=== PATIENT | female | born 1960 | race Caucasian/White ===

== ENCOUNTER → 2020-09-28 | Outpatient (CLI) | payer BC ==
[~2020-09-28] MED LIST: ADVAIR 250-501 EACH INH; ADVAIR HFA 230/1 INH INH; ASPIRIN EC81 MG PO; ASPIRIN325 MG PO; ATORVASTATIN CA20 MG PO; CYCLOBENZAPRINE5 MG PO; HYDROCODON-ACE1 EAC2 PO; IBU800 MG PO; IPRAT-ALBUT 0.5-3 ML INH; LIORESAL TAB 1010 MG PO; LISINOPRIL5 MG PO; LOPRESSOR100 MG PO; LOPRESSOR50 MG PO; NORVASC2.5 MG PO; NORVASC5 MG PO; OMEPRAZOLE20 M1 PO; PERCOCET 7.5-31 EACH PO; PREDNISONE20 MG PO; PRILOSEC OTC20 MG PO; PROVENTIL HFA6.7 GM INH; PROZAC20 MG PO; VENTOLIN HFA 66.7 GM INH; ZOFRAN4 MG PO
[2020-09-28 11:21] LABS: HEMOGLOBIN 14.2 gm/dl (12.3-15.3); RED BLOOD COUNT 4.69 M/UL (4.00-5.10); WHITE BLOOD COUNT 4.7 K/UL (4.5-11.0)
== END ==
LOC: EDSTATUS 10:30 → OPSV2 10:30
PROVIDERS: Orthopaedic Surgery
DX: Z01.818 Encounter for other preprocedural examination (principal); M17.12 Unilateral primary osteoarthritis, left knee; Z91.041 Radiographic dye allergy status
CPT/HCPCS: 36415; 71046; 80048; 81001; 85025; 87081; 93005

== ENCOUNTER → 2020-10-11 | Outpatient (CLI) | payer BC | LOC: LAB 04:19 | PROVIDERS: Orthopaedic Surgery | DX: Z01.812 Encounter for preprocedural laboratory examination (principal) | CPT/HCPCS: 80048; 86850; 86900; 86901 ==

== ENCOUNTER → 2020-11-15 | Outpatient (CLI) | payer BC | LOC: KOH-I 15:30 | DX: S42.292A Other displaced fracture of upper end of left humerus, initial encounter for closed fracture (principal); S42.142A Displaced fracture of glenoid cavity of scapula, left shoulder, initial encounter for closed fracture; W19.XXXA Unspecified fall, initial encounter | CPT/HCPCS: 73200 ==

== ENCOUNTER → 2020-11-18 | Outpatient (CLI) | payer BC ==
[2020-11-18 10:28] LABS: HEMOGLOBIN 13.3 gm/dl (12.3-15.3); RED BLOOD COUNT 4.42 M/UL (4.00-5.10); WHITE BLOOD COUNT 8.4 K/UL (4.5-11.0)
== END ==
LOC: OPSV2 08:30 → EDSTATUS 08:30 → OPSV2 09:04
PROVIDERS: Orthopaedic Surgery
DX: Z01.812 Encounter for preprocedural laboratory examination (principal); S42.202A Unspecified fracture of upper end of left humerus, initial encounter for closed fracture
CPT/HCPCS: 36415; 80048; 81001; 85025

== ENCOUNTER → 2020-11-20 | Outpatient (CLI) | payer BC | LOC: LAB 13:15 | PROVIDERS: Orthopaedic Surgery | DX: Z01.812 Encounter for preprocedural laboratory examination (principal) | CPT/HCPCS: 36415; 80048; 86850; 86900; 86901 ==

== ENCOUNTER 2020-11-21 08:43 | Day surgery (SDC) | payer BC ==
[~2020-11-21] VITALS: Ht 167.6 cm; Wt 126.1 kg
[2020-11-21] MEDS ORDERED: HYDROCODON-ACE1 EAC2 PO (10:05)
[2020-11-21] MEDS ORDERED: PERCOCET 7.5-31 EACH PO (15:05)
[2020-11-22 03:16] LABS: HEMOGLOBIN 12.4 gm/dl (12.3-15.3); RED BLOOD COUNT 4.15 M/UL (4.00-5.10); WHITE BLOOD COUNT 15.5 K/UL (4.5-11.0)
--- NOTE | 2020-11-22 04:19 | NUR ---
11/21/20 1900 LEFT SHOULDER ARM SLING ABDUCTION PILLOW IN PLACE.
--- NOTE | 2020-11-22 13:44 | NUR ---
STACIE OLIVEIRA APRN MADE AWARE AT THIS TIME OF XRAY RESULTS ON PATIENT. NO NEW ORDERS NOTED. STILL AWAITING HOME HEALTH SET UP AT THIS TIME.
== END 2020-11-22 16:38 | disposition home or self-care (01) ==
LOC: OR 08:43 → M/S 16:22 → OR 11-22 16:38
PROVIDERS: Orthopaedic Surgery
DX: S42.352A Displaced comminuted fracture of shaft of humerus, left arm, initial encounter for closed fracture (principal); I10 Essential (primary) hypertension; J45.909 Unspecified asthma, uncomplicated; K21.9 Gastro-esophageal reflux disease without esophagitis; F17.219 Nicotine dependence, cigarettes, with unspecified nicotine-induced disorders; E87.1 Hypo-osmolality and hyponatremia; E78.5 Hyperlipidemia, unspecified; K44.9 Diaphragmatic hernia without obstruction or gangrene; G47.30 Sleep apnea, unspecified; M19.90 Unspecified osteoarthritis, unspecified site; E66.9 Obesity, unspecified; Z83.3 Family history of diabetes mellitus; Z83.6 Family history of other diseases of the respiratory system; Z88.8 Allergy status to other drugs, medicaments and biological substances; Z79.899 Other long term (current) drug therapy; X58.XXXA Exposure to other specified factors, initial encounter
CPT/HCPCS: 36415; 73020; 73090; 80048; 85025; 94640; 94664; 94760; 97161; 97166; 97535; C1713; C1776; J0690; J1100; J1170; J2001; J2370; J2405; J2704; J2710; J2795; J3010; J3370; J7120

== ENCOUNTER → 2020-11-23 | Outpatient (CLI) | payer BC | LOC: OPSV 11:49 | DX: Z48.01 Encounter for change or removal of surgical wound dressing (principal) | CPT/HCPCS: G0463 ==

== ENCOUNTER → 2021-03-06 | Outpatient (CLI) | payer BC ==
[~2021-03-06] MED LIST changes: +BACLOFEN10 MG PO; +CYCLOBENZAPRINE10 MG PO; +HYDROCODONE-AC1 EAC1 PO
[2021-03-06 10:08] LABS: HEMOGLOBIN 14.4 gm/dl (12.3-15.3); RED BLOOD COUNT 5.15 M/UL (4.00-5.10); WHITE BLOOD COUNT 8.3 K/UL (4.5-11.0)
== END ==
LOC: OPSV2 09:00 → EDSTATUS 03-09 09:00
PROVIDERS: Orthopaedic Surgery
DX: Z01.818 Encounter for other preprocedural examination (principal); S43.005A Unspecified dislocation of left shoulder joint, initial encounter
CPT/HCPCS: 36415; 71046; 80048; 81001; 85027; 93005

== ENCOUNTER 2021-03-08 09:21 | Day surgery (SDC) | payer BC ==
[~2021-03-08] VITALS: Ht 167.6 cm; Wt 129.3 kg
[2021-03-08] MEDS ORDERED: HYDROCODON-ACE1 EAC2 PO (16:39)
[2021-03-09 06:54] LABS: WHITE BLOOD COUNT 7.3 K/UL (4.5-11.0)
[2021-03-09 06:58] LABS: HEMOGLOBIN 10.3 gm/dl (12.3-15.3); RED BLOOD COUNT 3.88 M/UL (4.00-5.10)
== END 2021-03-09 13:56 | disposition home or self-care (01) ==
LOC: OR 09:21 → M/S 18:20 → OR 03-09 13:56
PROVIDERS: Orthopaedic Surgery
DX: T84.028A Dislocation of other internal joint prosthesis, initial encounter (principal); I10 Essential (primary) hypertension; J44.9 Chronic obstructive pulmonary disease, unspecified; K21.9 Gastro-esophageal reflux disease without esophagitis; F17.210 Nicotine dependence, cigarettes, uncomplicated; E66.9 Obesity, unspecified; E78.5 Hyperlipidemia, unspecified; G47.30 Sleep apnea, unspecified; Z99.89 Dependence on other enabling machines and devices; Z68.41 Body mass index [BMI] 40.0-44.9, adult; Z91.041 Radiographic dye allergy status; Z79.82 Long term (current) use of aspirin; Z79.891 Long term (current) use of opiate analgesic; Z79.1 Long term (current) use of non-steroidal anti-inflammatories (NSAID); Z79.899 Other long term (current) drug therapy; Y79.2 Prosthetic and other implants, materials and accessory orthopedic devices associated with adverse incidents
CPT/HCPCS: 36415; 73020; 80048; 85025; 86850; 86900; 86901; 87070; 94640; 94664; 94760; 97161; 97165; C1776; J0171; J0690; J2250; J2370; J2405; J2704; J2795; J3010; J3370; J7120